=== PATIENT | female | born 1975 | race Caucasian/White ===

== ENCOUNTER 2017-09-17 20:01 | Emergency (ER) | payer OTHER ==
[2017-09-17] MEDS: IBUPROFEN 600 MG TAB PO (22:07)
[2017-09-17] MEDS: ACETAMINOPHEN 500 MG TAB PO (22:08)
== END 2017-09-17 22:32 | disposition home or self-care (01) ==
LOC: FTE 22:32
DX: J02.9 Acute pharyngitis, unspecified (principal); R05 Cough; R51 Headache; R50.9 Fever, unspecified; R09.81 Nasal congestion
CPT/HCPCS: 99283; Z7610